=== PATIENT | male | born 1980 | race Caucasian/White ===

== ENCOUNTER 2016-07-25 22:11 | Emergency (ER) ==
[2016-07-25 22:16] VITALS: BP 124/75; TEMP 100.6; BMI 27.8
[2016-07-25 23:01] LABS: FLU INTERNAL QC INTERNAL QC VALID; RAPID FLU A NEGATIVE (NEGATIVE); RAPID FLU B NEGATIVE (NEGATIVE)
--- NOTE | 2016-07-25 23:30 | ED.PDOC ---
General ED Provider: Dr. WALI BUSH Chief Complaint: Sore Throat Stated Complaint: Patient is a 36 year old male who complains of severe throat pain Time Seen by Physician: 23:29 Mode of Arrival: Walk-In Information Source: Patient Exam Limitations: No limitations Primary Care [facility] Nursing and Triage Documentation Reviewed and Agree: Yes EENT Complaint Exam - Throat Complaint/Exam Onset/Duration: 2 day Symptoms Are: Still present Timimg: Constant Initial Severity: Moderate Current Severity: Moderate Aggravating: Reports: Eating Alleviating: Reports: None Associated Signs and Symptoms: Reports: Fever, Vomiting Uvula Midline: No Yamilex-tonsillar Fluctuence: No Scarlatinaform Rash Present: No Lesions: Absent: Lip, Gums, Tongue, Buccal Mucosa, Pharynx Exanthem: Absent: Lip, Gums, Tongue, Buccal Mucosa, Pharynx Vesicles: Absent: Lip, Gums, Tongue, Buccal Mucosa, Pharynx Stridor Present: Yes Sinus Tenderness Present: No Tonsillar Hypertrophy Present: Yes Adenopathy Present: Yes Review of Systems - Review Of Systems Constitutional: Reports: No symptoms Eyes: Reports: No symptoms Ears, Nose, Mouth, Throat: Reports: No symptoms Respiratory: Reports: No symptoms Cardiac: Reports: No symptoms GI: Reports: No symptoms : Reports: No symptoms Musculoskeletal: Reports: No symptoms Skin: Reports: No symptoms Neurological: Reports: No symptoms Endocrine: Reports: No symptoms Hematologic/Lymphatic: Reports: No symptoms All Other Systems: Reviewed and Negative Past Medical History - Past Medical History Endocrine: Reports: None Cardiovascular: Reports: None Respiratory: Reports: None Hematological: Reports: None Gastrointestinal: Reports: None Genitourinary: Reports: None Neuro/Psych: Reports: Migraine Musculoskeletal: Reports: None Cancer: Reports: None - Surgical History General Surgical History: Reports: None - Family History Family History: Reports: Unknown - Social History Smoking Status: Current every day smoker Hx Substance Use: No Alcohol Screening: None - Immunizations Tetanus Shot up to Date: No Physical Exam - Physical Exam Appearance: Ill-appearing, Well-nourished Ill-appearing: Moderate Pain Distress: Moderate Eyes: TAY, EOMI, Conjunctiva clear ENT: Ears normal, Nose normal, Erythema Neck: Supple Respiratory: Airway patent, Breath sounds clear, Breath sounds equal, Respirations nonlabored Cardiovascular: RRR, Pulses normal, No rub, No murmur GI/: Soft, Nontender, No masses, Bowel sounds normal, No Organomegaly Musculoskeletal: Normal strength, ROM intact, No edema, No calf tenderness Skin: Warm, Dry, Normal color Neurological: Sensation intact, Motor intact, Cranial nerves intact, Alert, Oriented Psychiatric: Anxious Re-Evaluation - Re-Evaluation Time of Re-Evaluation: 01:40 Status: Improved (feels better after fluids. ) Critical Care Note - Critical Care Note Total Time (mins): 0 Course - Course Hematology/Chemistry: 07/26/16 00:05 07/26/16 00:05 Orders, Labs, Meds: Lab Review 07/25/16 22:35 Influenza A (Rapid) Negative Influenza B (Rapid) Negative Orders Category Date Time Status MOLECULAR GROUP A STREP Stat LAB 07/25/16 22:35 Results RAPID FLU A/B Stat LAB 07/25/16 22:35 Completed STREP SCREEN Stat LAB 07/25/16 22:35 Results Vital Signs: Temp Pulse Resp BP Pulse Ox 07/25/16 22:11 100.6 F H 99 H 20 124/75 96 Departure - Departure Time of Disposition: 01:39 Disposition: HOME SELF-CARE Discharge Problem: Pharyngitis Qualifiers: Pharyngitis/tonsillitis etiology: streptococcus Qualifier Code: (J02.0) Streptococcal pharyngitis Instructions: Pharyngitis (ED) Condition: Fair Pt referred to PMD for follow-up: Yes Additional Instructions: Push fluids Take medications as prescribed. Follow up with PCP in 2 days Prescriptions: Azithromycin [Zithromax] 250 mg PO DIRECTED #6 tablet Ibuprofen [Motrin] 600 mg PO Q6H PRN #30 tablet PRN Reason: Analgesia Allergies/Adverse Reactions: Allergies Penicillins Allergy (Severe, Verified 07/25/16 22:16) rash, throat closed up pt to get medical alert emycin Allergy (Severe, Uncoded 07/25/16 22:16) rash, throat closed up Home Medications: Ambulatory Orders Azithromycin [Zithromax] 250 mg PO DIRECTED #6 tablet 07/26/16 Ibuprofen [Motrin] 600 mg PO Q6H PRN #30 tablet 07/26/16 Disposition Discussed With: Patient
[2016-07-25] MEDS ORDERED: ZITHROMAX PO STA (23:39)
[2016-07-25] MEDS ORDERED: MOTRIN PO STA (23:39)
[2016-07-25] MEDS ORDERED: ZOFRAN 4 MG/2 ML IVP STA (23:49)
[2016-07-25] MEDS ORDERED: SODIUM CHLORIDE 1,000 ML IV STA (23:49)
[2016-07-25] MEDS ORDERED: MORPHINE 2 MG/ML SYRINGE IVP STA (23:49)
[2016-07-26 00:16] LABS: BASOPHILS # (AUTO) 0.1 K/uL (0-0.2); BASOPHILS % (AUTO) 0.5 % (0.0-3.0); EOSINOPHILS # (AUTO) 0.2 K/ul (0.0-0.7); HEMOGLOBIN 15.3 g/dl (14.0-18.0); IMMATURE GRANULOCYTE % (AUTO) 0.5 % (0.0-5.0); LYMPHOCYTES # (AUTO) 2.6 K/uL (0.60-3.4); MEAN CORPUSCULAR HEMOGLOBIN 30.7 pg (27.0-31.0); MEAN CORPUSCULAR HGB CONC 35.6 (31.8-35.4); MEAN CORPUSCULAR VOLUME 86.2 fl (80.0-94.0); MONOCYTES # (AUTO) 2.5 K/uL (0.4-2.0); MONOCYTES % (AUTO) 15.1 (0-10); NEUTROPHILS # (AUTO) 11.1 K/ul (2.0-6.9); NEUTROPHILS % (AUTO) 66.9; PLATELET COUNT 183 10^3/uL (140-440); RED BLOOD COUNT 4.99 10^6/ul (4.70-6.10); WHITE BLOOD COUNT 16.52 K/ul (4.2-10.2)
[2016-07-26 00:44] LABS: ALBUMIN 3.7 g/dL (3.4-5.0); ALBUMIN/GLOBULIN RATIO 1.09; ANION GAP 17.4; BILIRUBIN,TOTAL 0.83 mg/dL (0.00-1.20); BUN/CREATININE RATIO 11.76; CALCIUM 8.8 mg/dL (8.2-10.2); CREATININE 0.85 mg/dL (0.60-1.10); POTASSIUM 3.4 mmol/L (3.5-5.1); TOTAL PROTEIN 7.1 g/dL (6.4-8.2)
== END 2016-07-26 01:50 | disposition home or self-care (01) ==
LOC: ED 22:11
DX: J02.0 Streptococcal pharyngitis (principal); F17.210 Nicotine dependence, cigarettes, uncomplicated
CPT/HCPCS: 36415; 80053; 85025; 87040; 87651; 87804; 87880; 99283

== ENCOUNTER 2016-08-08 15:06 | Outpatient (CLI) ==
[2016-08-08 16:21] LABS: FLU INTERNAL QC INTERNAL QC VALID
[2016-08-08 16:22] LABS: RAPID FLU A NEGATIVE (NEGATIVE); RAPID FLU B NEGATIVE (NEGATIVE)
== END 2016-08-08 15:07 | disposition home or self-care (01) ==
LOC: LAB 15:06
PROVIDERS: ATTEND Nurse Practitioner Family
DX: J02.9 Acute pharyngitis, unspecified (principal); R50.9 Fever, unspecified
CPT/HCPCS: 87651; 87804; 87880

== ENCOUNTER 2016-08-15 10:53 | Outpatient (CLI) ==
[2016-08-15 13:29] LABS: BILIRUBIN,URINE Negative (NEGATIVE); KETONES,URINE Negative (NEGATIVE); LEUKOCYTE ESTERASE ,URINE Negative (NEGATIVE); NITRITE,URINE Negative (NEGATIVE); PROTEIN,URINE Negative (NEGATIVE); URINE, BLOOD Negative (NEGATIVE)
[2016-08-15 13:40] LABS: BASOPHILS # (AUTO) 0.2 K/uL (0-0.2); BASOPHILS % (AUTO) 1.4 % (0.0-3.0); EOSINOPHILS # (AUTO) 0.4 K/ul (0.0-0.7); EOSINOPHILS % (AUTO) 3.7 % (0.0-7.0); HEMATOCRIT 47.6 % (42.0-52.0); IMMATURE GRANULOCYTE % (AUTO) 3.6 % (0.0-5.0); LYMPHOCYTES # (AUTO) 4.6 K/uL (0.60-3.4); LYMPHOCYTES % (AUTO) 40.1 (10.0-50.0); MEAN CORPUSCULAR HEMOGLOBIN 30.8 pg (27.0-31.0); MEAN CORPUSCULAR HGB CONC 35.7 (31.8-35.4); MEAN CORPUSCULAR VOLUME 86.2 fl (80.0-94.0); MONOCYTES # (AUTO) 1.4 K/uL (0.4-2.0); MONOCYTES % (AUTO) 12.1 (0-10); NEUTROPHILS # (AUTO) 4.4 K/ul (2.0-6.9); NEUTROPHILS % (AUTO) 39.1; PLATELET COUNT 260 10^3/uL (140-440); RED BLOOD COUNT 5.52 10^6/ul (4.70-6.10); WHITE BLOOD COUNT 11.37 K/ul (4.2-10.2)
[2016-08-15 13:51] LABS: ADD URINE MICROSCOPIC NO
[2016-08-15 14:14] LABS: ALBUMIN 4.1 g/dL (3.4-5.0); ALBUMIN/GLOBULIN RATIO 1.24; ANION GAP 11.8; BILIRUBIN,TOTAL 0.92 mg/dL (0.00-1.20); BUN/CREATININE RATIO 14.58; CALCIUM 9.4 mg/dL (8.2-10.2); CHOL/HDL RATIO 5.5 (4.5-6.4); CREATININE 0.96 mg/dL (0.60-1.10); POTASSIUM 3.8 mmol/L (3.5-5.1); TOTAL PROTEIN 7.4 g/dL (6.4-8.2)
[2016-08-21 09:03] LABS: HIV ANTIBODIES QUALITATIVE NON REACTIVE (Nonreactive)
== END 2016-08-15 10:54 | disposition home or self-care (01) ==
LOC: LAB 10:53
PROVIDERS: ATTEND Nurse Practitioner Family
DX: E75.6 Lipid storage disorder, unspecified (principal); Z11.4 Encounter for screening for human immunodeficiency virus [HIV]; Z11.59 Encounter for screening for other viral diseases
CPT/HCPCS: 36415; 80053; 80061; 81001; 84439; 84443; 85025; 86701; 87522

== ENCOUNTER 2016-08-19 08:00 | Outpatient (CLI) ==
--- NOTE | 2016-08-19 10:09 | MRI ---
EXAM: Lumbar spine MRI without contrast. HISTORY: Low back pain. COMPARISON: Lumbar spine MRI 01/17/[address] abdomen and pelvis 04/15/2014. TECHNIQUE: Multiplanar, multisequence MR images were acquired of the lumbar spine without contrast. FINDINGS: Five lumbar-type vertebra are present. There is minor thoracolumbar dextroscoliosis cent ered at L2-3 and a trace retrolisthesis of L4 on L5 and L5 on S1. The lumbar vertebra are normal in height and intrinsic bone marrow signal. There is ventral spondylosis in the lumbar spine with disc space narrowing at L1-2 and L2-3 and ventral spondylosis with disc space narrowing and disc desicca tion at L4-5 and L5-S1. Conus medullaris ends at L1-2 and has normal signal intensity. Canal diamet er is developmentally narrow. The visualized liver, spleen and kidneys are unremarkable. There are no paravertebral masses. L1-2: There is a minor disc bulge. L2-3: There is a minor disc bulge. L3-4: There is a minor disc bulge and mild bilateral hypertrophic facet arthropathy and ligamentum flavum hypertrophy. This causes minor right and mild left neural foraminal stenosis. There is no c entral canal stenosis. L4-5: There is a diffuse disc bulge with a moderate central and right paracentral disc protrusion t hat encroaches on the right L5 nerve roots. There is mild bilateral hypertrophic facet arthropathy and ligamentum flavum hypertrophy. In this patient with a developmentally narrow canal, there is mi ld spinal stenosis and mild right and mild to moderate left neural foraminal stenosis. AP diameter of the thecal sac is 9.4 mm. L5-S1: There is a diffuse disc bulge with mild endplate irregularity along the right lateral endpla irene with small chronic Schmorl's nodes and minor reactive bright STIR signal edema surrounding the r ight L5 lateral inferior endplate chronic Schmorl's node. This has mildly progressed compared to pr evious MRI. There is a moderate central and right paracentral disc protrusion that encroaches on th e right S1 nerve roots and has slightly improved compared to previously. There is mild bilateral fa cet and ligamentum flavum hypertrophy and mild bilateral neural foraminal stenosis. IMPRESSION: 1. Stable moderate central/right paracentral disc protrusion L4-5 that encroaches on the right L5 n erve roots. 2. Slightly improved moderate central/right paracentral disc protrusion L5-S1 that encroaches on th e right S1 nerve roots. 3. Mild spinal stenosis L4-5. 4. Mild degenerative endplate changes L5-S1 which has progressed compared to 01/17/2009.
== END 2016-08-19 08:01 | disposition home or self-care (01) ==
LOC: RAD 08:00
PROVIDERS: ATTEND Nurse Practitioner Family
DX: M54.5 Low back pain (principal)

== ENCOUNTER 2016-09-05 19:39 | Emergency (ER) ==
[2016-09-05 19:48] VITALS: BP 137/83; TEMP 99.6; BMI 30.7
[2016-09-05 20:29] LABS: FLU INTERNAL QC INTERNAL QC VALID; RAPID FLU A NEGATIVE (NEGATIVE); RAPID FLU B NEGATIVE (NEGATIVE)
--- NOTE | 2016-09-05 20:35 | ED.PDOC ---
General ED Provider: Dr. CHRIS ADLER-ER Chief Complaint: Fever Stated Complaint: lisa got sinus drainage --yellow and green Time Seen by Physician: 19:45 Mode of Arrival: Walk-In Information Source: Patient Exam Limitations: No limitations Primary Care Provider: ZANE FRANK Nursing and Triage Documentation Reviewed and Agree: Yes Respiratory Complaint Exam - Respiratory Complaint/Exam Onset/Duration: 3 dasy Symptoms Are: Still present Timing: Constant Initial Severity: Mild Current Severity: Mild Location: Nose Character: Reports: Productive cough, Non-productive cough Aggravating: Reports: URI Alleviating: Reports: None Associated Signs and Symptoms: Reports: URI, Nasal congestion, Sinus discomfort , Sore throat. Denies: Rapid breathing, Dyspnea, Fever, Chills, Chest pain, Pleuritic chest pain, Wheezing, Hemoptysis, Dizziness, Calf pain, Calf swelling , Edema, Hoarseness, Weight loss, Decreased oral intake, Increased thirst, Increased appetite, Increased urination Related History: Reports: Similar episode History of Healthcare-Acquired Pneumonia: No Cardiac Risk Factors: Reports: None Pseudomonas Risk Factors: Reports: None Tuberculosis Risk Factors: Reports: None Home Oxygen Use: No Recent Stress Test: No Recent Echo/LV Function: No Current Antibiotic Use: No Current Asthma Medication Use: No Respiratory Distress: None Inadequate Respiratory Effort: No Dysphagia Present: No Stridor Present: No JVD Present: No Accessory Muscle Use: No Retractions: Not Present Diminished Breath Sounds: No Sinus Tenderness: Maxillary Grunting Respirations: No Kussmaul Respirations: No Review of Systems - Review Of Systems Constitutional: Reports: No symptoms Eyes: Reports: No symptoms Ears, Nose, Mouth, Throat: Reports: Nose discharge Respiratory: Reports: No symptoms Cardiac: Reports: No symptoms GI: Reports: No symptoms : Reports: No symptoms Musculoskeletal: Reports: No symptoms Skin: Reports: No symptoms Neurological: Reports: No symptoms Endocrine: Reports: No symptoms Hematologic/Lymphatic: Reports: No symptoms All Other Systems: Reviewed and Negative Past Medical History - Past Medical History Endocrine: Reports: None Cardiovascular: Reports: None Respiratory: Reports: None Hematological: Reports: None Gastrointestinal: Reports: None Genitourinary: Reports: None Neuro/Psych: Reports: Migraine Musculoskeletal: Reports: None Cancer: Reports: None - Surgical History General Surgical History: Reports: None - Family History Family History: Reports: Unknown - Social History Smoking Status: Current some day smoker Hx Substance Use: No Alcohol Screening: None Lives: With family - Immunizations Tetanus Shot up to Date: Yes Physical Exam - Physical Exam Appearance: Well-appearing, No pain distress, Well-nourished Eyes: TAY, EOMI, Conjunctiva clear ENT: Rhinorrhea Neck: Supple Respiratory: Airway patent, Breath sounds clear, Breath sounds equal, Respirations nonlabored Cardiovascular: RRR GI/: Soft Musculoskeletal: Normal strength, ROM intact, No edema, No calf tenderness Skin: Warm, Dry, Normal color Neurological: Sensation intact, Motor intact, Reflexes intact, Cranial nerves intact, Alert, Oriented Psychiatric: Affect appropriate Critical Care Note - Critical Care Note Total Time (mins): 0 Course - Course Orders, Labs, Meds: Lab Review 09/05/16 19:57 Influenza A (Rapid) Negative Influenza B (Rapid) Negative Orders Category Date Time Status MOLECULAR GROUP A STREP Stat LAB 09/05/16 19:57 Results RAPID FLU A/B Stat LAB 09/05/16 19:57 Completed STREP SCREEN Stat LAB 09/05/16 19:57 Results Vital Signs: Temp Pulse Resp BP Pulse Ox 09/05/16 19:42 99.6 F 88 20 137/83 93 L Departure - Departure Time of Disposition: 20:36 Disposition: HOME SELF-CARE Discharge Problem: Sinusitis Qualifiers: Sinusitis location: unspecified location Chronicity: acute Recurrence: not specified as recurrent Qualifier Code: (J01.90) Acute sinusitis, unspecified Instructions: Sinusitis (ED) Condition: Good Pt referred to PMD for follow-up: Yes Additional Instructions: levaquin 500mg #10---flonase nasal spray 2 puffs each nosril q daily---tessalon perles 200mg tid prn cough 30 --recehck in 72hfs if not beter Allergies/Adverse Reactions: Allergies Penicillins Allergy (Severe, Verified 09/05/16 19:50) rash, throat closed up pt to get medical alert gabapentin [From Neurontin] Allergy (Intermediate, Unverified 09/05/16 19:50) Vomiting ranitidine HCl [From Zantac] Allergy (Intermediate, Unverified 09/05/16 19:50) Difficulty Breathing simvastatin Allergy (Intermediate, Unverified 09/05/16 19:50) Itching emycin Allergy (Severe, Uncoded 09/05/16 19:50) rash, throat closed up Home Medications: Ambulatory Orders 1 [No Reported Medications] 09/05/16 Disposition Discussed With: Patient, Family
== END 2016-09-05 20:40 | disposition home or self-care (01) ==
LOC: ED 19:39
DX: J01.90 Acute sinusitis, unspecified (principal); F17.210 Nicotine dependence, cigarettes, uncomplicated
CPT/HCPCS: 87651; 87804; 87880; 99282

== ENCOUNTER 2016-10-31 15:40 | Outpatient (CLI) ==
--- NOTE | 2016-10-31 16:04 | DI ---
EXAM: Four views of the right knee HISTORY: Left knee effusion. COMPARISON: Same day left knee x-rays FINDINGS: Medial and lateral compartments are normal. There is no lytic or blastic lesion. The pat shanelle is normal in position without fracture. There is no significant effusion. The soft tissues ar e normal. No displaced fracture or dislocation is identified. IMPRESSION: No acute abnormality of the right knee.
--- NOTE | 2016-10-31 16:05 | DI ---
EXAM: Four views left knee HISTORY: Effusion of the left knee COMPARISON: None available FINDINGS: No fracture or dislocation is identified. The joint spaces are maintained. There is a moderate alethea nt effusion. There is minimal degenerative enthesopathy of the distal quadriceps tendon insertion. IMPRESSION: Moderate joint effusion. No acute osseous abnormality.
== END 2016-10-31 15:41 | disposition home or self-care (01) ==
LOC: RAD 15:40
PROVIDERS: ATTEND Nurse Practitioner Family
DX: M25.462 Effusion, left knee (principal); M25.561 Pain in right knee

== ENCOUNTER 2016-11-07 09:52 | Outpatient (CLI) ==
--- NOTE | 2016-11-07 13:41 | MRI ---
EXAM: MRI left knee without contrast. . HISTORY: Effusion. Knee pain. Swelling. 3 weeks. No known injury. No left knee surgery reporte d.. TECHNIQUE: Using a local extremity coil on a high field strength magnet multiplanar multisequence m agnet resonance imaging performed of the left knee without intravenous or intra-articular gadolinium contrast.. COMPARISON: Four view plain film examination left knee 10/31/2016. FINDINGS: Within the medial compartment there is tear posterior horn medial meniscus extending to t he inferior articulating surface. The medial compartment cartilage shows mild chondrosis. Tiny sub chondral fracture over the medial weightbearing rim of the medial tibial plateau with underlying sub chondral edema. Some more faint subchondral bone marrow edema along the medial wall of the medial f emoral condyle. Within the lateral compartment the lateral meniscus is intact without discrete surfacing meniscal te ar. The lateral compartment cartilage congruent without underlying subchondral edema. Within the patellofemoral compartment the patella seated with intact patellar attachment of the medi al and lateral patellar retinaculum. Both the patellar and trochlear groove cartilage congruent wit hout underlying subchondral edema. Moderate sized left knee effusion. No osteochondral loose bodies. Intact anterior and posterior cr uciate ligament fibers of normal orientation. The extensor mechanism is intact. Grade I sprain med ial collateral ligament. The lateral collateral ligament complex intact as is the posterolateral co rner.. IMPRESSION: Tear posterior horn medial meniscus extending to the inferior articulating surface. No discrete lateral meniscal tear identified. Tiny subchondral fracture over the medial weightbearing rim of the medial tibial plateau with underl trice subchondral edema. Moderate sized left effusion. Intact cruciate ligaments. Grade I sprain medial collateral ligament.
== END 2016-11-07 09:53 | disposition home or self-care (01) ==
LOC: RAD 09:52
PROVIDERS: ATTEND Nurse Practitioner Family
DX: M25.462 Effusion, left knee (principal); M25.562 Pain in left knee

== ENCOUNTER 2017-05-25 23:10 | Emergency (ER) ==
[2017-05-25 23:10] VITALS: BMI 30.7
[2017-05-25 23:20] VITALS: BP 156/91; TEMP 97.6
[2017-05-25] MEDS ORDERED: DECADRON 4 MG/ML SDV IM STA (23:20)
[2017-05-25] MEDS ORDERED: TORADOL IM STA (23:20)
--- NOTE | 2017-05-25 23:24 | ED.PDOC ---
General ED Provider: Dr. MARY ROJAS Chief Complaint: Elbow Pain/Injury Stated Complaint: Injured right elbow 2days ago, hurting ever since, there is some swelling, Time Seen by Physician: 23:21 Mode of Arrival: Walk-In Information Source: Patient, Family Primary Care Provider: ZANE FRANK Nursing and Triage Documentation Reviewed and Agree: Yes Reviewed sepsis parameters & appropriate labs ordered?: Yes System Inflammatory Response Syndrome: Not Applicable Sepsis Protocol: For patient's 13 years and over: Temp is 96.8 and below OR 101 and greater Pulse >90 BPM Resp >20/minute Acutely Altered Mental Status Are patient's symptoms suggestive of a new infection, such as: -Pneumonia -Skin, Soft Tissue -Endocarditis -UTI -Bone, Joint Infection -Implantable Device -Acute Abdominal Infection -Wound Infection -Meningitis -Blood Stream Catheter Infection -Unknown Musculoskeletal Complaint Exam - Elbow Pain Complaint/Exam Mechanism of Injury: Reports: Trauma Symptoms Are: Still present Onset of Pain: Reports: Immediate Initial Severity: Moderate Current Severity: Moderate Location: Reports: Discrete Character: Reports: Aching, Throbbing Aggravating: Reports: Movement Associated Signs and Symptoms: Reports: Swelling, Redness. Denies: Bruising, Fever, Weakness, Numbness, Tingling Related Surgical History: Reports: None Elbow Findings: Present: Swelling Differential Diagnoses: Closed Fracture, Joint Effusion, Strain Review of Systems - Review Of Systems Constitutional: Reports: No symptoms Eyes: Reports: No symptoms Ears, Nose, Mouth, Throat: Reports: No symptoms Respiratory: Reports: No symptoms Cardiac: Reports: No symptoms GI: Reports: No symptoms : Reports: No symptoms Musculoskeletal: Reports: Joint pain, Joint swelling Skin: Reports: No symptoms Neurological: Reports: No symptoms Endocrine: Reports: No symptoms Hematologic/Lymphatic: Reports: No symptoms All Other Systems: Reviewed and Negative Past Medical History - Past Medical History Previously Healthy: Yes Endocrine: Reports: None Cardiovascular: Reports: None Respiratory: Reports: None Hematological: Reports: None Gastrointestinal: Reports: None Genitourinary: Reports: None Neuro/Psych: Reports: Migraine Musculoskeletal: Reports: None Cancer: Reports: None - Surgical History General Surgical History: Reports: None - Family History Family History: Reports: Unknown - Social History Smoking Status: Current every day smoker, Heavy tobacco smoker Hx Substance Use: No Alcohol Screening: Occasionally - Immunizations Tetanus Shot up to Date: Yes Physical Exam - Physical Exam Appearance: Ill-appearing Pain Distress: Moderate Eyes: TAY, EOMI, Conjunctiva clear ENT: Ears normal, Nose normal, Oropharynx normal Respiratory: Airway patent, Breath sounds clear, Breath sounds equal, Respirations nonlabored Cardiovascular: RRR, Pulses normal, No rub, No murmur GI/: Soft, Nontender, No masses, Bowel sounds normal, No Organomegaly Musculoskeletal: Limited ROM, Limited strength Skin: Warm, Dry, Normal color Neurological: Sensation intact, Motor intact, Reflexes intact, Cranial nerves intact, Alert, Oriented Psychiatric: Affect appropriate, Mood appropriate Interpretation - Radiology Interpretation Radiology Interpretation By: Radiologist Radiology Results: Positive Exam Interpreted: CT Scan Critical Care Note - Critical Care Note Total Time (mins): 15 Course - Course Orders, Labs, Meds: Orders Category Date Time Status Dexamethasone 4 mg/ml Inj [Decadron 4 mg/ml Sdv] MEDS 05/25/17 23:20 Discontinued 4 mg IM ONCE STA Ketorolac Tromethamine [Toradol] MEDS 05/25/17 23:20 Discontinued 60 mg IM ONCE STA CT ELBOW RIGHT WO CONTRAST Stat RADS 05/25/17 23:20 Completed Medications Discontinued Medications Generic Name Dose Route Start Last Admin Trade Name Freq PRN Reason Stop Dose Admin Dexamethasone Sodium Phosphate 4 mg 05/25/17 23:20 05/25/17 23:32 Decadron 4 Mg/Ml Sdv IM 05/25/17 23:21 4 mg ONCE STA Administration Ketorolac Tromethamine 60 mg 05/25/17 23:20 05/25/17 23:33 Toradol IM 05/25/17 23:21 60 mg ONCE STA Administration Vital Signs: Temp Pulse Resp BP Pulse Ox 05/25/17 23:10 97.6 F 82 15 156/91 H 98 Departure - Departure Time of Disposition: 00:27 Disposition: HOME SELF-CARE Discharge Problem: Closed olecranon fracture Qualifiers: Encounter type: initial encounter Laterality: right Qualified Code(s): S52.021A - Displaced fracture of olecranon process without intraarticular extension of right ulna, initial encounter for closed fracture Instructions: Arm Fracture in Adults (ED) Condition: Good Pt referred to PMD for follow-up: Yes Additional Instructions: needs f/u with ortho. REST Prescriptions: Hydrocodone Bit/Acetaminophen [[place] 7.5-325] 1 each PO Q8H #14 tablet Allergies/Adverse Reactions: Allergies Penicillins Allergy (Severe, Verified 05/25/17 23:32) rash, throat closed up pt to get medical alert gabapentin [From Neurontin] Allergy (Intermediate, Unverified 05/25/17 23:32) Vomiting ranitidine HCl [From Zantac] Allergy (Intermediate, Unverified 05/25/17 23:32) Difficulty Breathing simvastatin Allergy (Intermediate, Unverified 05/25/17 23:32) Itching azithromycin Adverse Reaction (Verified 05/25/17 23:32) emycin Allergy (Severe, Uncoded 05/25/17 23:32) rash, throat closed up Home Medications: Ambulatory Orders Hydrocodone Bit/Acetaminophen [[place] 7.5-325] 1 each PO Q8H #14 tablet 05/26/17 Disposition Discussed With: Patient, Family
--- NOTE | 2017-05-26 00:22 | CT ---
Exam: CT right elbow without contrast History: Injury and pain Technique: [address] of the right elbow with multiplanar reformations FINDINGS: Soft tissue swelling over the olecranon. No fracture lines are seen. Right olecranon spu r is present. Fracture line at the base of the olecranon spur. Olecranon spur measuring 5 mm in rosalia th. Impression: 1. Nondisplaced hairline fracture at the base of the olecranon spur. 2. No acute bony or articular abnormalities of the elbow proper.
== END 2017-05-26 00:45 | disposition home or self-care (01) ==
LOC: ED 23:10
DX: S52.021A Displaced fracture of olecranon process without intraarticular extension of right ulna, initial encounter for closed fracture (principal); F17.210 Nicotine dependence, cigarettes, uncomplicated
CPT/HCPCS: 96372; 99282

== ENCOUNTER 2018-06-15 14:57 | Outpatient (CLI) | END 2018-06-15 14:58 | disposition home or self-care (01) | LOC: RHC-LAB 14:57 → FCC-LAB 14:58 | PROVIDERS: ATTEND Nurse Practitioner Family | DX: R10.9 Unspecified abdominal pain (principal); R30.0 Dysuria; N50.819 Testicular pain, unspecified; Z12.5 Encounter for screening for malignant neoplasm of prostate; R31.9 Hematuria, unspecified; R39.9 Unspecified symptoms and signs involving the genitourinary system | CPT/HCPCS: 36415; 80053; 84145; 85025 ==